=== PATIENT | male | born 1940 | race Caucasian/White ===

== ENCOUNTER 2024-02-02 16:50 | Emergency (ER) | payer OTHER ==
[~2024-02-02] VITALS: Ht 165.1 cm; Wt 78.9 kg
[2024-02-02 17:06] VITALS: BP 117/77
[2024-02-02 17:37] LABS: RDW Coefficient Variation 14.8 % (11.7-14.2)
[2024-02-02 17:44] LABS: BASOPHILS ABSOLUTE AUTO 0.07 K/mm3 (0.00-0.23); BASOPHILS PERCENT AUTO 1 % (0-2); EOSINOPHILS PERCENT AUTO 41 % (0-6); Hematocrit 49.2 % (37.0-53.0); Hemoglobin 16.7 g/dL (13.5-17.5); IMMATURE GRAN ABSOLUTE AUTO 0.08 K/mm3 (0.00-0.10); IMMATURE GRAN PERCENT AUTO 1 % (0-1); LYMPHOCYTES ABSOLUTE AUTO 1.74 K/mm3 (0.84-5.20); LYMPHOCYTES PERCENT AUTO 13 % (21-46); MONOCYTES ABSOLUTE AUTO 0.94 K/mm3 (0.16-1.47); MONOCYTES PERCENT AUTO 7 % (4-13); Mean Corpuscular HGB 33.5 pg (26.0-34.0); Mean Corpuscular HGB Conc 33.9 g/dL (31.5-36.5); Mean Corpuscular Volume 99 fL (80-100); NEUTROPHILS ABSOLUTE AUTO 5.24 K/mm3 (1.96-9.15); NEUTROPHILS PERCENT AUTO 39 % (41-73); Platelet Count 250 K/mm3 (150-400); RDW Standard Deviation 53.5 fL (35.1-46.3); Red Blood Cell Count 4.99 M/mm3 (4.30-5.90); White Blood Cell Count 13.57 K/mm3 (4.00-11.30)
[2024-02-02] MEDS ORDERED: MONDOXYNE NL100 MG PO (20:32)
[2024-02-02] MEDS ORDERED: CELEXA10 MG PO (20:32)
[2024-02-02] MEDS ORDERED: HYDHCL25 PO (20:32)
[2024-02-02] MEDS ORDERED: LEVOTHYROXINE112 M18 PO (20:33)
[2024-02-02] MEDS ORDERED: TRAZ50 PO (20:33)
[2024-02-02] MEDS ORDERED: MEMANTINE HCL511 PO (20:34)
[2024-02-02] MEDS ORDERED: DONEPEZIL HCL10 M1 PO (20:34)
[2024-02-02] MEDS ORDERED: DiphenhydrAMINE HCl 50 MG/ML 1ML Vial IV ONE (20:40)
[2024-02-02] MEDS ORDERED: Dexamethasone Sod Phos 10 MG/ML 1ML VIAL IV ONE (20:40)
[2024-02-02 20:55] LABS: Albumin, Blood 3.5 g/dL (3.4-5.0); Bilirubin, Total 0.9 mg/dL (0.1-1.0); Bun/Creatinine Ratio 18.7 (12.0-20.0); Creatinine, Blood 0.96 mg/dL (0.60-1.20); Globulin, Blood 3.5 g/dL (2.2-4.0); Potassium, Blood 4.2 mmol/L (3.5-5.5)
[2024-02-02] MEDS ORDERED: FURO20 PO (21:23)
[2024-02-02] MEDS ORDERED: BENADRYL ITCH28.3 GM TOP (21:23)
[2024-02-02] MEDS ORDERED: PRED20 PO (21:23)
[2024-02-02] MEDS ORDERED: DiphenhydrAMINE HCL/Zinc Acet Cream TOP ONE (21:40)
== END 2024-02-02 21:51 | disposition home or self-care (01) ==
LOC: ER 16:50
PROVIDERS: Emergency Medicine; Nurse Practitioner
DX: L30.9 Dermatitis, unspecified (principal); F03.90 Unspecified dementia, unspecified severity, without behavioral disturbance, psychotic disturbance, mood disturbance, and anxiety; R60.0 Localized edema; Z79.899 Other long term (current) drug therapy
CPT/HCPCS: 80053; 83605; 83880; 85025; 87040; 93005; 93010; 96374; 96375; 99283-25; A9270; J1100; J1200

== ENCOUNTER 2024-05-29 10:06 | Emergency (ER) | payer OTHER ==
[~2024-05-29] VITALS: Ht 172.7 cm; Wt 68.0 kg
[~2024-05-29 10:06] MED LIST: BENADRYL ITCH28.3 GM TOP; CELEXA10 MG PO; DONEPEZIL HCL10 M1 PO; FURO20 PO; HYDHCL25 PO; LEVOTHYROXINE112 M18 PO; MEMANTINE HCL511 PO; MONDOXYNE NL100 MG PO; PRED20 PO; TRAZ50 PO
[2024-05-29 11:05] VITALS: BP 125/63
== END 2024-05-29 11:05 | disposition home or self-care (01) ==
LOC: ER 10:06
DX: S00.03XA Contusion of scalp, initial encounter (principal); W06.XXXA Fall from bed, initial encounter; F03.90 Unspecified dementia, unspecified severity, without behavioral disturbance, psychotic disturbance, mood disturbance, and anxiety; Z79.890 Hormone replacement therapy; Z79.899 Other long term (current) drug therapy
CPT/HCPCS: 70450; 99284-25

== ENCOUNTER 2025-05-18 21:11 | Emergency (ER) | payer OTHER ==
[~2025-05-18] VITALS: Ht 180.3 cm; Wt 72.6 kg
[2025-05-18 21:18] VITALS: BP 116/65
[2025-05-18] MEDS ORDERED: Haloperidol Lactate Inj. 5 MG/ML Injection IV ONE (23:55)
[2025-05-19] MEDS ORDERED: Diazepam 5 MG / ML 2ML SYR IV ONE (01:10)
[2025-05-19] MEDS ORDERED: Diazepam 5 MG / ML 2ML SYR IM ONE ×2 (01:10→06:05)
[2025-05-19] MEDS ORDERED: Haloperidol Lactate Inj. 5 MG/ML Injection IM ONE (04:15)
[2025-05-19 05:47] LABS: BASOPHILS ABSOLUTE AUTO 0.04 K/mm3 (0.00-0.23); BASOPHILS PERCENT AUTO 1 % (0-2); EOSINOPHILS ABSOLUTE AUTO 0.21 K/mm3 (0.00-0.68); EOSINOPHILS PERCENT AUTO 3 % (0-6); Hematocrit 43.4 % (37.0-53.0); Hemoglobin 14.6 g/dL (13.5-17.5); IMMATURE GRAN ABSOLUTE AUTO 0.02 K/mm3 (0.00-0.10); IMMATURE GRAN PERCENT AUTO 0 % (0-1); LYMPHOCYTES ABSOLUTE AUTO 1.95 K/mm3 (0.84-5.20); LYMPHOCYTES PERCENT AUTO 28 % (21-46); MONOCYTES ABSOLUTE AUTO 0.64 K/mm3 (0.16-1.47); MONOCYTES PERCENT AUTO 9 % (4-13); Mean Corpuscular HGB Conc 33.6 g/dL (31.5-36.5); Mean Corpuscular Volume 97 fL (80-100); NEUTROPHILS ABSOLUTE AUTO 4.15 K/mm3 (1.96-9.15); NEUTROPHILS PERCENT AUTO 59 % (41-73); NRBC ABSOLUTE 0.00 K/mm3 (0.00-0.02); NRBC Auto 0.0 /100 WBC (0.0-0.2); Platelet Count 178 K/mm3 (150-400); RDW Coefficient Variation 14.4 % (11.7-14.2); RDW Standard Deviation 51.4 fL (35.1-46.3)
[2025-05-19 06:11] LABS: Alanine Aminotransfer (ALT/SGP 19.0 U/L (12-78); Albumin, Blood 3.6 g/dL (3.4-5.0); Albumin/Globulin Ratio 1.0 (0.8-1.8); Anion Gap 7.0 mmol/L (3-11); Aspartate Aminotrans (AST/SGOT 44.0 U/L (12-37); Bilirubin, Total 0.5 mg/dL (0.1-1.0); Blood Urea Nitrogen 14.0 mg/dL (8-24); CO2, Blood 27.0 mmol/L (21-32); Calcium, Blood 9.0 mg/dL (8.5-10.1); Chloride, Blood 111.0 mmol/L (98-108); Creatinine, Blood 1.04 mg/dL (0.60-1.20); Globulin, Blood 3.7 g/dL (2.2-4.0); Glucose, Blood 115.0 mg/dL (70-99); Potassium, Blood 4.5 mmol/L (3.5-5.5); Sodium, Blood 140.0 mmol/L (136-145); Total Protein, Blood 7.3 g/dL (6.4-8.2)
[2025-05-19] MEDS ORDERED: HYDR1TAB94 PO (06:20)
== END 2025-05-19 08:31 | disposition home or self-care (01) ==
LOC: ER 21:11
PROVIDERS: Emergency Medicine
DX: S22.42XA Multiple fractures of ribs, left side, initial encounter for closed fracture (principal); S22.31XA Fracture of one rib, right side, initial encounter for closed fracture; F03.918 Unspecified dementia, unspecified severity, with other behavioral disturbance; W18.30XA Fall on same level, unspecified, initial encounter; Z79.899 Other long term (current) drug therapy
CPT/HCPCS: 70450; 71045; 72125; 74176; 80053; 85025; 93005; 93010; 96372; 99285-25; J1630; J3360